=== PATIENT | female | born 1995 | race Caucasian/White ===

== ENCOUNTER 2016-12-29 08:31 | Emergency (ER) | payer BC ==
[~2016-12-29] VITALS: Ht 170.2 cm; Wt 77.3 kg
[2016-12-29 08:33] VITALS: BP 120/74; TEMP 98
[2016-12-29] MEDS ORDERED: RECLIPSEN 0.151 TAB PO (08:36)
[2016-12-29 10:36] VITALS: PULSE 72
== END 2016-12-29 10:36 | disposition home or self-care (01) ==
LOC: COL.ER 08:31
DX: S69.82XA Other specified injuries of left wrist, hand and finger(s), initial encounter (principal); X58.XXXA Exposure to other specified factors, initial encounter